=== PATIENT | male | born 1990 | race Caucasian/White ===

== ENCOUNTER 2018-10-11 15:21 | Emergency (ER) | payer OTHER, SELFPAY ==
[2018-10-11 15:25] VITALS: BP 138/82; PULSE 60; RESP 14; TEMP 36.3; O2SAT 100; BMI 30.3
--- NOTE | 2018-10-11 17:19 | ED.SKABFB ---
HPI - Skin/Abscess/Foreign Bdy <JUDY Lay - Last Filed: 10/11/18 22:00> General Chief complaint: Skin/Abscess/Foreign Body Stated complaint: index and middle finger right hand laceration Time Seen by Provider: 10/11/18 16:09 Source: patient Mode of arrival: ambulatory Limitations: no limitations History of Present Illness HPI narrative: Healthy 28-year-old male that is a nonsmoker here for complaint of laceration to his right index finger and right middle finger after he cut it accidentally on a metal can while he was preparing dinner earlier today. Injury is limited to the to fingers. He reports that his immunizations are up-to-date. He reports that tetanus is up-to-date. Bleeding is controlled with direct pressure. No other concerns or complaints at this timeframe. MD complaint: laceration Related Data Home Medications Medication Instructions Recorded Confirmed No Known Home Medications 10/11/18 10/11/18 Allergies Allergy/AdvReac Type Severity Reaction Status Date / Time No Known Drug Allergies Allergy Verified 10/11/18 15:29 Review of Systems <JUDY Lay - Last Filed: 10/11/18 22:00> Constitutional Denies chills, Denies fever(s), Denies lethargy and Denies weakness Eyes Denies change in vision, Denies eye discharge, Denies irritation and Denies loss of vision ENT Ears, Nose, Mouth, and Throat: Denies change in voice, Denies neck pain and Denies sore throat Cardiovascular Denies chest pain, Denies irregular heart rhythm, Denies lightheadedness, Denies palpitations, Denies dyspnea, Denies dyspnea on exertion and Denies orthopnea Respiratory Denies cough, Denies dyspnea, Denies dyspnea on exertion and Denies wheezing Gastrointestinal Gastrointestinal: Denies abdominal pain, Denies change in bowel habits, Denies diarrhea, Denies nausea and Denies vomiting Genitourinary Denies hematuria, Denies flank pain, Denies urinary incontinence and Denies urinary urgency Musculoskeletal Denies neck pain Comments: Laceration to right index finger and right middle finger Integumentary/Breasts Comments: Laceration to right index finger right middle finger Neurologic Denies confusion, Denies loss of vision and Denies weakness Psychiatric Denies anxiety, Denies confusion, Denies depression, Denies homicidal ideation and Denies suicidal ideation Endocrine Denies palpitations Hematologic/Lymphatic Denies easy bruising Allergic/Immunologic Denies wheezing PFSH <JUDY Lay - Last Filed: 10/11/18 22:00> Social History Smoking Status: Never smoker Social History Smoking Status: Never smoker Exam <JUDY Lay - Last Filed: 10/11/18 22:00> Initial Vital Signs Initial Vital Signs: Vital Signs Temperature 97.3 F L 10/11/18 15:25 Pulse Rate 60 10/11/18 15:25 Respiratory Rate 14 10/11/18 15:25 Blood Pressure 138/82 10/11/18 15:25 Pulse Oximetry 100 10/11/18 15:25 Const General: cooperative and well developed Nutritional Appearance: well nourished Orientation: alert, awake, oriented x3 and not confused HENMT Mouth: oral mucosae normal and moist mucous membranes Eyes Conjunctivae: conjunctivae normal Sclera: sclerae normal Pupils: PERRL EOM: EOM intact bilaterally Neck Neck: normal visual inspection, trachea midline, No lymphadenopathy, No midline deformity and No JVD Lymphatic: No lymphedema Resp Effort & Inspection: normal respiratory effort, able to speak in complete sentences, no respiratory distress and no use of accessory muscles Auscultation: clear to auscultation bilaterally, no rales, no rhonchi and no wheezes Cardio Rate: regular rate Rhythm: regular rhythm Heart Sounds: no click, no gallops, no murmurs and no rubs Pulses: normal peripheral pulses Skin General: no rashes or lesions noted, No jaundice and No petechiae Neuro General: alert, oriented x3, gait normal and no focal motor deficits Speech: speech normal Extrem Other: 2 cm avulsion flap laceration to the right middle finger distal radial aspect. No nail involvement. Distal sensation is intact. Full range of motion. Distal cap refill less than 2 sec. 2 cm curved flap laceration to the right index finger distal radial aspect distal sensation is intact. Full range of motion of the finger. Distal cap refill less than 2 sec. <Ant Sung DO - Last Filed: 10/14/18 07:07> Initial Vital Signs Initial Vital Signs: Vital Signs Temperature 97.3 F L 10/11/18 15:25 Pulse Rate 60 10/11/18 15:25 Respiratory Rate 14 10/11/18 15:25 Blood Pressure 138/82 10/11/18 15:25 Pulse Oximetry 100 10/11/18 15:25 Course <JUDY Lay - Last Filed: 10/11/18 22:00> Vital Signs - 8 hr 10/11/18 15:25 10/11/18 18:35 Temperature 97.3 F L Pulse Rate 60 62 Respiratory Rate 14 18 Blood Pressure 138/82 Pulse Oximetry 100 98 <Ant Sung DO - Last Filed: 10/14/18 07:07> Vital Signs - 8 hr 10/11/18 15:25 10/11/18 18:35 Temperature 97.3 F L Pulse Rate 60 62 Respiratory Rate 14 18 Blood Pressure 138/82 Pulse Oximetry 100 98 MDM - Skin/Abscess/Foreign Bdy <JUDY Lay - Last Filed: 10/11/18 22:00> MDM Narrative Medical decision making narrative: Lacerations to the right distal middle finger and index finger were closed with sutures. Wounds dressed with bacitracin dressing. Sutures removed in 7-10 days. [id number] Tylenol or Motrin as needed for any discomfort. Patient states that tetanus is up-to-date. Follow up with primary care provider the next few days for re-evaluation. For any worsening symptoms return emergency room. Discharge Plan Departure Patient Disposition: Home Clinical Impression: Laceration of right middle finger Qualifiers: Encounter type: initial encounter Damage to nail status: without damage Foreign body presence: without foreign body Qualified Code(s): S61.212A - Laceration without foreign body of right middle finger without damage to nail, initial encounter Laceration of right index finger Qualifiers: Encounter type: initial encounter Damage to nail status: without damage Foreign body presence: without foreign body Qualified Code(s): S61.210A - Laceration without foreign body of right index finger without damage to nail, initial encounter Discharge Date/Time: 10/11/18 18:36 Interventions: ED Discharge Assessment Last Done: 10/11/18 18:35 Instructions: DI for Laceration Repair Activity Restrictions/Additional Instructions: Lacerations to the right middle finger and index finger were closed with sutures. The sutures will need to removed in 7-10 days. Dress wound daily with bacitracin and dressing until healed. Keep initial dressing on clean and dry for the 1st 24-36 hr. After this timeframe a shower briefly. Dry wound after shower and redressed with bacitracin dressing. Use [id number] Tylenol or Motrin as needed for any discomfort. Follow up with her primary care provider. For any worsening symptoms or signs of infection return to the emergency room. Prescriptions: No Action No Known Home Medications RF: 0 Referrals: [facility] [Provider Group] <Ant Sung DO - Last Filed: 10/14/18 07:07> Cosign ED Attending Coskaterinaature Attestation: I was available for consultation during this patient's emergency department encounter
[2018-10-11 18:35] VITALS: PULSE 62; RESP 18; O2SAT 98
== END 2018-10-11 18:36 | disposition home or self-care (01) ==
PROVIDERS: Emergency Provider Nurse Practitioner Family
DX: S61.210A Laceration without foreign body of right index finger without damage to nail, initial encounter (principal); S61.212A Laceration without foreign body of right middle finger without damage to nail, initial encounter; W26.8XXA Contact with other sharp object(s), not elsewhere classified, initial encounter
CPT/HCPCS: 99282